=== PATIENT | male | born 1995 | race Caucasian/White ===

== ENCOUNTER 2020-01-05 17:35 | Emergency (ER) | payer BC, SELFPAY ==
[2020-01-05 17:41] VITALS: BP 134/74; PULSE 73; RESP 18; TEMP 36.9; O2SAT 99
--- NOTE | 2020-01-05 17:45 | DI.RAD.S_ITS ---
PROCEDURE: XR HAND RT MIN 3V INDICATIONS: punched plywood TECHNIQUE: 3 views of the hand(s) acquired. COMPARISON: [facility], , HAND 3V RIGHT, 08/12/2012, 21:40. FINDINGS: Bones: No dislocations. There is a suspected fracture at the base of the fifth metacarpal, relatively well-seen on 2-3 views. This area was not abnormal on comparison similar study 08/12/12. Carpal bones are normally aligned. No suspicious bony lesions. Soft tissues: No suspicious soft tissue calcifications. IMPRESSION: Partially visualized fifth metacarpal base fracture, intra-articular. Dictated by: Bernard Felipe M.D. on 01/05/2020 at 18:42 Approved by: Bernard Felipe M.D. on 01/05/2020 at 18:44
--- NOTE | 2020-01-05 19:15 | ED_ITS ---
HPI - Extremity Injury (Upper) <TIMOTHY Pedroza - Last Filed: 01/05/20 20:46> General Chief Complaint: Extremity Injury, Upper Stated Complaint: right hand injury Time Seen by Provider: 01/05/20 17:58 Source: patient Mode of arrival: Ambulatory History of Present Illness HPI narrative: 24-year-old male presents emergency department complaining of right hand pain for the past 4 days. Patient states he punched a piece of plywood. He reports swelling and ecchymosis. Patient states he has been wearing a wrist brace for the past 2 days. He states the pain is worse when he bends his wrist and better with rest. Patient describes the pain is a dull aching with intermittent sharp stabbing sensations, rated at a 4-5/10. Patient denies any other injury such as finger injury, elbow injury, shoulder injury, or head injury. Patient denies any nausea, vomiting, diarrhea, fevers, chest pain, or any other concerns. Related Data Allergies Allergy/AdvReac Type Severity Reaction Status Date / Time No Known Drug Allergies Allergy Verified 01/05/20 18:43 Review of Systems <TIMOTHY Pedroza - Last Filed: 01/05/20 20:46> Review of Systems Narrative: REVIEW OF SYSTEMS: GENERAL: Denies fever or chills. HENT: No head trauma. RESPIRATORY: No cough MUSCULOSKELETAL: Complains of right hand pain, see HPI. INTEGUMENTARY: No rash, lesions, or pruritus. NEURO: No numbness, tingling. PSYCH: No behavior or mood changes. Patient History <TIMOTHY Pedroza - Last Filed: 01/05/20 20:46> Medical History No significant medical problems (Acute) Social History Smoking Status: Current every day smoker Smoking Status: Current every day smoker tobacco type: vaping Exam <TIMOTHY Pedroza - Last Filed: 01/05/20 20:46> Initial Vital Signs Initial Vital Signs: Vital Signs Temperature 98.4 F 01/05/20 17:41 Pulse Rate 73 01/05/20 17:41 Respiratory Rate 18 01/05/20 17:41 Blood Pressure 134/74 01/05/20 17:41 Pulse Oximetry 99 01/05/20 17:41 PHYSICAL EXAMINATION: GENERAL: Well groomed, alert, and cooperative. Answers questions promptly and appropriately. Vital signs noted. HENT: Normocephalic, atraumatic. EYES: Symmetrical, sclera white, no periorbital swelling. CARDIOVASCULAR: Regular rate. RESPIRATORY: Normal respiratory rate, trachea midline, airway patent. No stridor, nasal flaring or accessory muscle use. MUSCULOSKELETAL: Tenderness at the base of 4th and 5th metatarsal of right hand, decreased flexion of wrist due to pain. No tenderness to palpation of phalanges or elbow. 8 cm area of ecchymosis noted on the mid palmar aspect of right hand Normal gait and coordination. Equal tone and mass bilaterally. EXTREMITIES: CMS intact. Pedal pulses 2+ and intact bilaterally. SKIN: Warm, dry, soft, appropriate color for ethnicity. No lesions, rashes, or wounds. NEURO: Alert and Oriented X 3. No sensory deficits. PSYCH: Appropriate affect and mood. <Bren Fitch MD - Last Filed: 01/06/20 02:38> Initial Vital Signs Initial Vital Signs: Vital Signs Temperature 98.4 F 01/05/20 17:41 Pulse Rate 73 01/05/20 17:41 Respiratory Rate 18 01/05/20 17:41 Blood Pressure 134/74 01/05/20 17:41 Pulse Oximetry 99 01/05/20 17:41 Procedures <TIMOTHY Pedroza - Last Filed: 01/05/20 20:46> Orthopedic Splinting/Casting Injury #1: Side: right Upper Extremity Injury Location: hand Upper Extremity Immobilizer: ulnar gutter Post splinting neuro exam: intact Post splinting vascular exam: intact Placed by: Nursing Course <TIMOTHY Pedroza - Last Filed: 01/05/20 20:46> Orders Ordered: ED Orders 01/05/20 17:45 XR hand RT min 3V Stat Vital Signs Vital signs: Vital Signs - 8 hr 01/05/20 19:53 01/05/20 19:54 Pulse Rate 70 Pulse Rate [Right Radial] 70 Respiratory Rate 16 Blood Pressure [Left Arm] 128/72 Pulse Oximetry 98 <Bren Fitch MD - Last Filed: 01/06/20 02:38> Orders Ordered: ED Orders 01/05/20 17:45 XR hand RT min 3V Stat Vital Signs Vital signs: Vital Signs - 8 hr 01/05/20 19:53 01/05/20 19:54 Pulse Rate 70 Pulse Rate [Right Radial] 70 Respiratory Rate 16 Blood Pressure [Left Arm] 128/72 Pulse Oximetry 98 MDM - Extremity Injury (Upper) <TIMOTHY Pedroza - Last Filed: 01/05/20 20:46> Medical Records Attestation: I reviewed the patient's medical records. Lab Data Attestation: I reviewed the patient's lab results. Imaging Data Extremity x-ray #1: Radiologist's Impression: [address] [address] XRay Report Signed Patient: Kevin Christianson [facility]#: [id number] : 1995Acct:[id number] Age/Sex: 24 / MDate of Service: 01/05/20 Loc: ED Accession Number: [id number] Procedure: XR hand RT min 3V Ordering Provider: Oumar Santiago MD PROCEDURE: XR HAND RT MIN 3V INDICATIONS: punched plywood TECHNIQUE: 3 views of the hand(s) acquired. COMPARISON: [facility], , HAND 3V RIGHT, 08/12/2012, 21:40. FINDINGS: Bones: No dislocations. There is a suspected fracture at the base of the fifth metacarpal, relatively well-seen on 2-3 views. This area was not abnormal on comparison similar study 08/12/12. Carpal bones are normally aligned. No suspicious bony lesions. Soft tissues: No suspicious soft tissue calcifications. IMPRESSION: Partially visualized fifth metacarpal base fracture, intra- articular. Dictated by: Bernard Felipe M.D. on 01/05/2020 at 18:42 Approved by: Bernard Felipe M.D. on 01/05/2020 at 18:44 MDM Narrative Medical decision making narrative: 24yo male presenting to the emergency department for right hand pain after punching a hard object. X-ray shows 5th metacarpal fracture, examination correlates with this finding. No concerns for other injury due to history examination. Splint was placed. Patient was encouraged to follow up with Ortho. Return precautions given, patient agreed to plan of care verbalized understanding. Discharge Plan Departure Patient Disposition: Home Clinical Impression: Fracture of fifth metacarpal bone Qualifiers: Encounter type: initial encounter Fracture type: closed Metacarpal location: base Fracture alignment: nondisplaced Laterality: right Qualified Code(s): S62.346A - Nondisplaced fracture of base of fifth metacarpal bone, right hand, initial encounter for closed fracture Discharge Date/Time: 01/05/20 20:04 Instructions: DI for a Hand Fracture Activity Restrictions/Additional Instructions: Thank you for entrusting me with your care today. As discussed, you have a fracture in the 5th metacarpal bone of your right hand. We have placed a splint on her hand, do not remove this. If you feel that the James bandages wrap too tightly, you may loosen it. Please follow-up with the orthopedic listed below. Return emergency department for any new or worsening symptoms such as severe pain, numbness, tingling, chest pain, fevers, or any other concerns. Referrals: Leonor Cameron PA-C [Advanced Practice Architect] - <Bren Fitch MD - Last Filed: 01/06/20 02:38> Cosign ED Attending Cosignature Attestation: I was immediately available in the department for consultation throughout this patient's visit. I agree with documentation as above. Bren Fitch MD
[2020-01-05 19:53] VITALS: PULSE 70
[2020-01-05 19:54] VITALS: BP 128/72; PULSE 70; RESP 16; O2SAT 98
== END 2020-01-05 20:04 | disposition home or self-care (01) ==
PROVIDERS: Emergency Provider Nurse Practitioner
DX: S62.346A Nondisplaced fracture of base of fifth metacarpal bone, right hand, initial encounter for closed fracture (principal); W22.8XXA Striking against or struck by other objects, initial encounter
CPT/HCPCS: 29125; 73130; 99283

== ENCOUNTER 2020-08-24 07:14 | Emergency (ER) | payer BC, SELFPAY ==
[2020-08-24 07:39] VITALS: BP 124/75; PULSE 75; RESP 12; TEMP 36.7; O2SAT 97
[2020-08-24 08:05] LABS: COVID19 -Nasal RAPID Negative (Negative)
--- NOTE | 2020-08-24 08:11 | ED_ITS ---
HPI - URI/Sore Throat General Chief Complaint: Upper Respiratory Symptoms Stated Complaint: Body aches/diarrhea/headache x1day ?COVID Time Seen by Provider: 08/24/20 07:40 Source: patient Mode of arrival: Ambulatory Limitations: no limitations History of Present Illness HPI Narrative: Patient is a 25-year-old male who was exposed to COVID [place] [employer] and [employer]. He did not wear mask with his sister who then became positive. Yesterday he developed a headache and some fatigue. He denies any chest pain cough shortness of breath nausea vomiting, loss of taste or smell or body aches. He is here solely to get a COVID test Related Data Allergies Allergy/AdvReac Type Severity Reaction Status Date / Time No Known Drug Allergies Allergy Verified 08/24/20 07:41 Review of Systems Review of Systems ROS Unobtainable: All systems reviewed & are unremarkable except as noted in HPI and below Constitutional Constitutional: Denies chills, Denies fever(s), Reports headache(s), Denies lethargy and Denies weakness ENT Ears, Nose, Mouth, and Throat: Denies change in voice, Reports headache(s), Denies neck pain and Denies sore throat Cardiovascular Cardiovascular: Denies chest pain, Denies irregular heart rhythm, Denies light headedness, Denies palpitations, Denies dyspnea, Denies dyspnea on exertion and Denies orthopnea Respiratory Respiratory: Denies cough, Denies dyspnea, Denies dyspnea on exertion and Denies wheezing Gastrointestinal Gastrointestinal: Denies abdominal pain, Denies change in bowel habits, Denies diarrhea, Denies nausea and Denies vomiting Musculoskeletal Musculoskeletal: Denies neck pain Integumentary/Breasts Skin/Breast: Denies pruritus, Denies erythema, Denies rash and Denies wounds Neurologic Neurologic: Reports headache(s) and Denies weakness Endocrine Endocrine: Denies palpitations Allergic/Immunologic Allergic/Immunologic: Denies wheezing Patient History Medical History (Updated 08/24/20 @ 08:23 by Jenna Jean DO) No significant medical problems Social History Smoking Status: Current every day smoker Smoking Status: Current every day smoker tobacco type: vaping Substance Use Type: does not use Exam Initial Vital Signs Initial Vital Signs: Vital Signs Temperature 98.0 F 08/24/20 07:39 Pulse Rate 75 08/24/20 07:39 Respiratory Rate 12 08/24/20 07:39 Blood Pressure 124/75 08/24/20 07:39 Pulse Oximetry 97 08/24/20 07:39 GENERAL: Well-appearing, well-nourished and in no acute distress. CARDIOVASCULAR: peripheral pulses in tact, cap refill <2 sec RESPIRATORY: No respiratory distress, speaks in full sentences without difficulty EXTREMITIES: Normal range of motion, no clubbing or edema. Neurovascularly intact NEUROLOGICAL: Cranial nerves II through XII grossly intact. Normal gait and speech. SKIN: Warm, dry, no petechiae, no rashes or lesions. Course Orders Ordered: ED Orders 08/24/20 07:40 COVID19 Stat Vital Signs Vital signs: Vital Signs - 8 hr 08/24/20 07:39 Temperature 98.0 F Pulse Rate 75 Respiratory Rate 12 Blood Pressure 124/75 Pulse Oximetry 97 MDM - URI/Sore Throat Lab Data Labs: Lab Results 08/24/20 Range/Units 07:40 COVID-19 PCR Negative (Negative) MDM Narrative Medical decision making narrative: Patient had an exposure 5 days ago highly suspect that he may develop COVID. His COVID test is currently negative. I have discussed with him that he needs to quarantine and tell others around him that he was exposed. He has no comorbidities and is overall feeling well. Discharge Plan Departure Patient Disposition: Home Clinical Impression: Upper respiratory infection, COVID-19 Instructions: DI for COVID-19 (Suspected or Confirmed ) Activity Restrictions/Additional Instructions: *You have been diagnosed with it is highly suspected that you have COVID-19 *Continue to take medications as directed Recommend vitamin D 2500 units daily Tylenol if needed for fever 650 mg every 4-6 hours *Follow up with your primary care provider in 2-3 days *Return to ER if you should have increasing shortness of breath, bluish lips [or] any new, worsening or concerning symptoms *What to do: -recommend you buy a home pulse oximeter to monitor your oxygen levels at home. If oxygen is dropping to 88% you need to return to ED Who needs to quarantine? People who have been in close contact with someone who has COVID-19?excluding people who have had COVID-19 within the past 3 months. People who have tested positive for COVID-19 do not need to quarantine or get tested again for up to 3 months as long as they do not develop symptoms again. People who develop symptoms again within 3 months of their first bout of COVID- 19 may need to be tested again if there is no other cause identified for their symptoms. What counts as close contact? You were within 6 feet of someone who has COVID-19 for a total of 15 minutes or more You provided care at home to someone who is sick with COVID-19 You had direct physical contact with the person (hugged or kissed them) You shared eating or drinking utensils They sneezed, coughed, or somehow got respiratory droplets on you Steps to take Stay home and monitor your health Stay home for 14 days after your last contact with a person who has COVID-19. Watch for fever (100.4?F), cough, shortness of breath, or other symptoms of COVID-19 If possible, stay away from others, especially people who are at higher risk for getting very sick from COVID-19
== END 2020-08-24 08:32 | disposition home or self-care (01) ==
PROVIDERS: Emergency Provider Emergency Medicine
DX: J06.9 Acute upper respiratory infection, unspecified (principal); R51.9 Headache, unspecified; U07.1 COVID-19; R53.83 Other fatigue
CPT/HCPCS: 87635; 99281; 99282

== ENCOUNTER → 2021-01-26 13:19 | Outpatient (CLI) | payer BC, SELFPAY ==
[2021-01-26 13:42] LABS: COVID19 -Nasal RAPID POSITIVE (Negative)
== END ==
PROVIDERS: Visit Provider Physician Assistant
DX: J02.9 Acute pharyngitis, unspecified (principal); R05 Cough; R51.9 Headache, unspecified
CPT/HCPCS: 87635

== ENCOUNTER 2022-01-15 09:35 | Emergency (ER) | payer SELFPAY ==
[2022-01-15 10:01] VITALS: BP 116/65; PULSE 75; RESP 16; TEMP 36.6; O2SAT 98; BMI 31.6
--- NOTE | 2022-01-15 10:04 | DI.RAD.S_ITS ---
PROCEDURE: XR CHEST 2V INDICATIONS: chest pain, worse with palpation TECHNIQUE: 2 views of the chest were acquired. COMPARISON: None. FINDINGS: Surgical changes and devices: None. Lungs and pleura: Lungs are clear. No pleural effusions or pneumothorax. Mediastinum: Mediastinal contours are normal. Heart size is normal. Bones and chest wall: No suspicious bony abnormalities. Soft tissues appear unremarkable. IMPRESSION: No acute cardiopulmonary findings. Dictated by: Darby Redd M.D. on 01/15/2022 at 10:42 Approved by: Darby Redd M.D. on 01/15/2022 at 10:42
--- NOTE | 2022-01-16 19:31 | ED.CHESTPAIN ---
HPI - Chest Pain <Aguilar Amor PA-C - Last Filed: 01/16/22 19:38> General Chief Complaint: Chest Pain Stated Complaint: Chest pain x 3 days Time Seen by Provider: 01/15/22 13:27 Source: patient Mode of arrival: Ambulatory Limitations: no limitations History of Present Illness HPI narrative: 26-year-old male with no reported past medical history presents to the ED with 2 days of sternal pain. Patient describes it as he feels like it needs to pop?, and he is able to reproduce it by pushing down on his sternum. Patient denies any new trauma, new activity. Patient has not taken anything for the pain. Patient denies fever, chills, trouble breathing, nausea, vomiting, abdominal pain, dysuria, lightheadedness, dizziness, syncope. Related Data Home Medications Medication Instructions Recorded Confirmed No Known Home Medications 09/20/20 01/26/21 Allergies Allergy/AdvReac Type Severity Reaction Status Date / Time No Known Drug Allergies Allergy Verified 01/15/22 10:04 Review of Systems <Aguilar Amor PA-C - Last Filed: 01/16/22 19:38> Review of Systems ROS Unobtainable: All systems reviewed & are unremarkable except as noted in HPI and below Constitutional Constitutional: Denies chills, Denies fatigue, Denies fever(s), Denies frequent falls, Denies lethargy and Denies weakness Eyes Eyes: Denies change in vision, Denies eye discharge, Denies irritation and Denies loss of vision ENT Ears, Nose, Mouth, and Throat: Denies change in voice, Denies dizziness, Denies neck pain, Denies sore throat and Denies throat swelling Cardiovascular Cardiovascular: Reports chest pain, Denies irregular heart rhythm, Denies lightheadedness, Denies palpitations, Denies dyspnea, Denies dyspnea on exertion and Denies orthopnea Comments: Chest pain in the sternum area, patient says he feels like it needs to pop, reproducible with pushing on the sternum Respiratory Respiratory: Denies cough, Denies dyspnea, Denies dyspnea on exertion and Denies wheezing Gastrointestinal Gastrointestinal: Denies abdominal pain, Denies change in bowel habits, Denies diarrhea, Denies nausea and Denies vomiting Genitourinary Genitourinary: Denies hematuria, Denies flank pain, Denies urinary incontinence and Denies urinary urgency Musculoskeletal Musculoskeletal: Denies back pain, Denies muscle weakness, Denies neck pain, Denies numbness and Denies tingling Integumentary/Breasts Skin/Breast: Denies pruritus, Denies erythema, Denies rash and Denies wounds Neurologic Neurologic: Denies behavioral changes, Denies confusion, Denies dizziness, Denies frequent falls, Denies loss of vision, Denies numbness, Denies tingling and Denies weakness Psychiatric Psychiatric: Denies anxiety, Denies behavioral changes, Denies confusion, Denies depression, Denies homicidal ideation and Denies suicidal ideation Endocrine Endocrine: Denies fatigue, Denies flushing and Denies palpitations Hematologic/Lymphatic Hematologic/Lymphatic: Denies easy bruising Allergic/Immunologic Allergic/Immunologic: Denies urticaria, Denies throat swelling and Denies wheezing Patient History <Aguilar Amor PA-C - Last Filed: 01/16/22 19:38> Medical History No significant medical problems Shingles Social History Smoking Status: Current every day smoker Smoking Status: Current every day smoker tobacco type: vaping Substance Use Type: does not use Exam <Aguilar Amor PA-C - Last Filed: 01/16/22 19:38> Narrative Exam Narrative: Const General:?cooperative, healthy appearing and comfortable [facility] Head:?normal to inspection Ears:?hearing grossly normal bilaterally Nose:?external nose normal Face and sinus:?normal facial exam and sinuses nontender Mouth:?oral mucosae normal Throat:?posterior oropharynx normal Eyes General:?appearance normal, both eyes and all related structures Neck Neck:?normal visual inspection and no lymphadenopathy noted Resp Effort & Inspection:?normal respiratory effort Auscultation:?clear to auscultation bilaterally Cardio Rate:?regular rate Rhythm:?regular rhythm Tenderness to palpation reproducible in the sternum region with anteroposterior pressure. Neuro General:?patient alert, patient awake and patient oriented x3 Initial Vital Signs Initial Vital Signs: Vital Signs Temperature 97.9 F 01/15/22 10:01 Pulse Rate 75 01/15/22 10:01 Respiratory Rate 16 01/15/22 10:01 Blood Pressure 116/65 01/15/22 10:01 Pulse Oximetry 98 01/15/22 10:01 <Bren Fithc MD - Last Filed: 01/23/22 06:26> Initial Vital Signs Initial Vital Signs: Vital Signs Temperature 97.9 F 01/15/22 10:01 Pulse Rate 75 01/15/22 10:01 Respiratory Rate 16 01/15/22 10:01 Blood Pressure 116/65 01/15/22 10:01 Pulse Oximetry 98 01/15/22 10:01 MDM - Chest Pain <Aguilar Amor PA-C - Last Filed: 01/16/22 19:38> Imaging Data Chest x-ray: Radiologist's Impression: PROCEDURE:? XR CHEST 2V ? INDICATIONS:? chest pain, worse with palpation ? TECHNIQUE:? 2 views of the chest were acquired.? ? COMPARISON:? None. ? FINDINGS:? ? Surgical changes and devices:? None.? ? Lungs and pleura:? Lungs are clear.? No pleural effusions or pneumothorax.? ? Mediastinum:? Mediastinal contours are normal.? Heart size is normal.? ? Bones and chest wall:? No suspicious bony abnormalities.? Soft tissues appear unremarkable.? ? IMPRESSION:? No acute cardiopulmonary findings. ? ? Dictated by: Darby Redd M.D. on 01/15/2022 at 10:42 ? ? Approved by: Darby Redd M.D. on 01/15/2022 at 10:42 ? [facility] Narrative Medical decision making narrative: 26-year-old male with no reported past medical history presents to the ED with 2 days of sternal pain. Given that the pain is reproducible by pushing down on the sternum, concern for musculoskeletal sprain/strain. Unlikely cardiac or pulmonary cause, CXR without acute changes. Recommend supportive measures with ibuprofen/Tylenol for the symptoms. Patient agrees to follow-up with his PCP. ED return precautions discussed with patient. Patient verbalizes understanding. Discharge Plan Departure Patient Disposition: Home Clinical Impression: Costochondritis Instructions: DI for Atypical Chest Pain Activity Restrictions/Additional Instructions: You were evaluated in the ED today for chest pain. Your chest x-ray was normal. Your symptoms are reproducible by pushing down on your breast bone, when you move. This is reassuring, your symptoms are likely due to a musculoskeletal sprain/strain. You may take Tylenol or ibuprofen for your symptoms. Return to the ED if you have worsening pain, shortness of breath. Prescriptions: No Action No Known Home Medications 0RF <Bren Fitch MD - Last Filed: 01/23/22 06:26> Cosign ED Attending Cosdebbyature Attestation: I was immediately available in the department for consultation throughout this patient's visit. I agree with documentation as above. Bren Fitch MD
== END 2022-01-15 13:56 | disposition home or self-care (01) ==
PROVIDERS: Emergency Provider Student in an Organized Health Care Education/Training Program
DX: M94.0 Chondrocostal junction syndrome [Tietze] (principal)
CPT/HCPCS: 71046; 99281; 99283

== ENCOUNTER 2024-04-06 00:30 | Emergency (ER) | payer SELFPAY ==
[2024-04-06 00:39] VITALS: BP 172/93; PULSE 115; RESP 16; TEMP 37.1; O2SAT 99; BMI 29.9
--- NOTE | 2024-04-06 00:48 | ED_ITS ---
HPI - General Adult General Chief complaint: Neuro Symptoms/Deficit Stated complaint: rt side face going numb Time Seen by Provider: 04/06/24 00:38 History of Present Illness HPI narrative: 29-year-old male complains of tingling and numbness to the right side of his tongue yesterday, through the day today increased, also noticed this evening when he tried to brush his teeth that he had some drool from the right side of his face, inability to completely close his right eye, also some facial droop when he tries to smile in the right side. He has no previous diagnosis of any neurological conditions, no prior Aceves's palsy. No history of diabetes. No blood thinner medications. No headache symptoms. No weakness to arms or legs or to left side of the face. No trouble with swallowing. No problems with blurred vision or scotomata or double vision. He has tingling to the right side of his face and tongue, but no tingling to the left side is face, nor to upper extremities or lower extremities. First visit for this problem, he has not currently taking any medications for this, has not tried any [id number] medications for this. Related Data Previous Rx's Medication Instructions Recorded prednisone 20 mg tablet 60 mg (3 x 20 mg) PO DAILY 7 days 04/06/24 #21 tabs valacyclovir 1 gram tablet 1,000 mg PO TID 7 days #21 tabs 04/06/24 Allergies Allergy/AdvReac Type Severity Reaction Status Date / Time No Known Drug Allergies Allergy Verified 01/15/22 10:04 Review of Systems Review of Systems Narrative: see HPI Patient History Medical History No significant medical problems Shingles Social History Smoking Status: Current every day smoker Smoking Status: Current every day smoker tobacco type: vaping Substance Use Type: does not use Exam Narrative Exam Narrative: GENERAL: Well-developed patient, in mild distress. HEAD: Atraumatic. Normocephalic. EYES: Pupils equal round and reactive. Extraocular motions intact. No scleral icterus. No injection or drainage. No significant erythema to sclera on the right or left side ENT: Nose without bleeding, purulent drainage. Throat without erythema, tonsillar hypertrophy or exudate. Airway patent. Right TM not seen due to EAC moist cerumen occluding the canal NECK: Trachea midline. Non tender CARDIOVASCULAR: Regular rate and rhythm without murmurs, gallops, or rubs. RESPIRATORY: Clear to auscultation. Breath sounds equal bilaterally. No wheezes, rales, or rhonchi. GASTROINTESTINAL: Abdomen soft, non-tender, nondistended. EXTREMITIES: No edema or joint tenderness. BACK: Nontender without deformity or crepitance. No flank tenderness. NEURO: AOx3. Clear speech, cooperative. 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 He has slight right facial droop at rest, significantly present with smiling. He has inability to close the right eyelid all the way when asked to close both eyes. He has some diminished ability to raise his right eyebrow on the right side compared to the left. No significant numbness on light touch testing upper mid lower face. Remainder of cranial nerve exam unremarkable. Motor 5/5 upper extremities, motor 5/5 lower extremities. Normal [id number] testing right and left side. SKIN: No rash or erythema of visible areas Initial Vital Signs Initial Vital Signs: Vital Signs Temperature 98.7 F 04/06/24 00:39 Pulse Rate 115 H 04/06/24 00:39 Respiratory Rate 16 04/06/24 00:39 Blood Pressure 172/93 H 04/06/24 00:39 Pulse Oximetry 99 04/06/24 00:39 Oxygen Delivery Method Room Air 04/06/24 00:39 Course Orders Ordered: Discontinued Medications Artificial Tears (Carboxymethylcellulose Drops) 1 drops EYE-RIGHT PRN PRN PRN Reason: Dry Eye(s) Prednisone (Prednisone 20 Mg Tablet) 60 mg PO NOW ONE Stop: 04/06/24 01:07 Last Admin: 04/06/24 01:40 Dose: 60 mg Documented By: OZZY Valacyclovir HCl (Valacyclovir 500 Mg Tablet) 1,000 mg PO NOW ONE Stop: 04/06/24 01:07 Last Admin: 04/06/24 01:42 Dose: 1,000 mg Documented By: OZZY Vital Signs Vital signs: Vital Signs - 8 hr 04/06/24 00:39 04/06/24 00:59 Temperature 98.7 F Pulse Rate 115 H 112 H Respiratory Rate 16 16 Blood Pressure 172/93 H 151/97 H Pulse Oximetry 99 97 Oxygen Delivery Method Room Air Room Air Medical Decision Making MDM Narrative Medical decision making narrative: 29-year-old with right-sided Aceves's palsy symptoms, no weakness to arms or legs, inability to close right eye when asked to close both eyes, inability to raise the right eyebrow as well as on his left side of the face, slight right facial droop at rest that is significantly more present with smiling on the right side. Remainder of cranial nerve and other motor upper and lower extremity assessments normal. We discussed treatment antivirals and steroids, as his symptoms are less than 48 hours and fairly significantly present, he is interested in trying this. First dose acyclovir and prednisone, prescription for 7 day course to his pharmacy sent. Follow up with Otolaryngology in next day or 2, return precautions discussed. Also advised to consider [id number] Lacri-Lube to keep his right eye moisturize during sleep at night, with daytime aqueous eye moisturizing drops every 30-60 minutes as ne eded. Patient seemed reassured, answered his questions, discharged home Discharge Plan Departure Patient Disposition: Home Clinical Impression: Aceves's palsy Activity Restrictions/Additional Instructions: 29-year-old male with right-sided tongue tingling and facial tingling, now with some decreased facial droop when smiling, inability to completely close the right eye. No weakness or numbness to the left side of the face, nor to the upper extremities, nor to the lower extremities. This is not a stroke of the midbrain or cortex of the brain. This is consistent with a different neurological disorder, Aceves's palsy, which is a weakness of the upper and lower face on the affected side due to a peripheral palsy of the 7th cranial nerve on that side. If symptoms are within a couple of days, some patients might respond to antiviral treatment and steroid treatment. We discussed this, you would like to start the treatment. First dose of prednisone and Ventolin acyclovir antiviral given in the emergency department, prescription for further course sent to your pharmacy. Consider use of xtqs-rpx-kitlaen Lacri-Lube to lubricate the affected eye in the right side during sleep, as it we will be exposed to drying, when the right eyelid is not able to completely close. Consider use of contact isolation or aqueous nonmedicated moisturizing eyedrops while awake every 30-60 minutes to keep the right eye hydrated in the imbricated. Hopefully you will have complete resolution of symptoms, although some patient sometimes do not have complete resolution of symptoms. Consider follow up with local otolaryngology specialist, contact information given for their clinic. Return to this/nearest emergency department for any change worsening symptoms or any concerns prior Prescriptions: New prednisone 20 mg tablet 60 mg PO DAILY 7 Days Qty: 21 0RF valacyclovir 1 gram tablet 1,000 mg PO TID 7 Days Qty: 21 0RF Referrals: Humza Jones MD [Physician] - Stand Alone Forms: Patient Portal/API
[2024-04-06 00:59] VITALS: BP 151/97; PULSE 112; RESP 16; O2SAT 97
[2024-04-06] MEDS: predniSONE 20 MG TABLET 60 MG PO (01:40)
[2024-04-06] MEDS: valACYclovir 500 MG TABLET 1000 MG PO (01:42)
[2024-04-06 01:49] VITALS: BP 124/73; PULSE 102; RESP 16; O2SAT 97
== END 2024-04-06 01:51 | disposition home or self-care (01) ==
PROVIDERS: Emergency Provider Emergency Medicine
DX: G51.0 Bell's palsy (principal)
CPT/HCPCS: 99283; 99284; A9270

== ENCOUNTER 2025-05-23 17:48 | Emergency (ER) | payer OTHER, SELFPAY ==
[2025-05-23 17:57] VITALS: BP 144/88; PULSE 86; RESP 14; TEMP 36.6; O2SAT 98; BMI 32.3
--- NOTE | 2025-05-23 18:47 | ED.ANIMALBIT ---
HPI - Animal Bite General Chief Complaint: Animal Bite Stated Complaint: animal bite-dog Lt ankle Time Seen by Provider: 05/23/25 18:46 Source: patient, RN notes reviewed and old records reviewed Mode of arrival: Ambulatory Limitations: no limitations History of Present Illness HPI narrative: 30-year-old male with a complaint of dog bite to the left ankle/calf. Patient states this happened earlier today. 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 He did speak to the dog's owners but states they were not very forthcoming with the information they were not willing to share her vaccination status. Patient is feeling out a report. He is unsure of his tetanus status. Discussed rabies but felt to be low likely has not patient defers. Patient denies any other injuries. Denies any daily medications. Does use tobacco. Denies any allergies to medication. Related Data Previous Rx's ?Medication ?Instructions ?Recorded amoxicillin 875 mg-potassium 1 tab PO BID #20 tabs 05/23/25 clavulanate 125 mg tablet Allergies Allergy/AdvReac Type Severity Reaction Status Date / Time No Known Drug Allergies Allergy Verified 05/23/25 17:57 Review of Systems Review of Systems ROS Unobtainable: All systems reviewed & are unremarkable except as noted in HPI and below Patient History Medical History Shingles No significant medical problems tobacco type: vaping alcohol intake frequency: holidays/special occasions only Exam Narrative Exam Narrative: GENERAL: Alert and oriented x three, male in mild distress HEENT: Head normocephalic, atraumatic, EOMI, pupils reactive, face symmetric, moist mucous membranes NECK: Supple, full range of motion CARDIOVASCULAR: Regular rate and rhythm without murmurs, rubs or gallops. RESPIRATORY: Breath sounds equal bilaterally, no wheezes rales or rhonchi. ABDOMEN: Soft, nontender. Normoactive bowel sounds all 4 quadrants. No guarding or rebound, rigidity, no mass EXTREMITIES: Normal range of motion, no clubbing or edema. Neurovascularly intact, patient has a small abrasion on his left posterior calf about 6 cm above the ankle. There was no gap and shows no cutaneous exposure. There was no surrounding erythema or drainage. Patient has a normal range of motion. 2+ pulse. No bony tenderness. NEUROLOGICAL: Cranial nerves II through XII grossly intact. Moving all extremities SKIN: Warm, dry, no petechiae, no rashes or lesions otherwise noted. Initial Vital Signs Initial Vital Signs: Vital Signs Temperature 97.9 F 05/23/25 17:57 Pulse Rate 86 05/23/25 17:57 Respiratory Rate 14 05/23/25 17:57 Blood Pressure 144/88 H 05/23/25 17:57 Pulse Oximetry 98 05/23/25 17:57 Oxygen Delivery Method Room Air 05/23/25 17:57 Course Orders Ordered: Discontinued Medications Amoxicillin/Clavulanate Potassium (Amoxicillin/Clav 875/125 Mg) 1 tab PO NOW ONE Stop: 05/23/25 18:52 Last Admin: 05/23/25 19:18 Dose: 1 tab Documented By: JACKI Diphtheria/Tetanus/Acell Pertussis (Tet,Diph,Pertuss(Acell),Vac/Pf 0.5 Ml Syringe) 0.5 ml IM .ONCE ONE Stop: 05/23/25 18:52 Last Admin: 05/23/25 19:17 Dose: 0.5 ml Documented By: JACKI Vital Signs Vital signs: Vital Signs - 8 hr 05/23/25 17:57 Temperature 97.9 F Pulse Rate 86 Respiratory Rate 14 Blood Pressure 144/88 H Pulse Oximetry 98 Oxygen Delivery Method Room Air MDM - Animal Bite MDM Narrative Medical decision making narrative: Patient's tetanus was updated. Patient started on oral antibiotic. Discharge Plan Departure Patient Disposition: Home Clinical Impression: Dog bite of left calf Instructions: DI for Dog Bite Activity Restrictions/Additional Instructions: Please follow up if any signs of infection. Your tetanus was updated today. Take oral antibiotics until completed. Prescription was sent to [facility]. Wound Care: Keep wound(s) clean and dry. Wash daily with soap and water only. Do not use over the counter products (alcohol or peroxide)on the wounds unless instructed by a physician, you can use topical triple antibiotics as prescribed. If wound condition worsens (increased/expanding redness, developing fluid blisters, or worsening pain), either contact your doctor for an urgent re-assessment , or return to the Emergency Department. Return if fever greater than 100.4 Fahrenheit, increased swelling, increasing pain or worsening symptoms such as increased discharge or spreading redness. Prescriptions: New amoxicillin-pot clavulanate 875-125 mg tablet 1 tab PO BID Qty: 20 0RF Stand Alone Forms: Patient Portal/API
[2025-05-23] MEDS: TET,DIPH,PERTUSS(ACELL),VAC/PF 0.5 ML SYRINGE IM (19:17)
[2025-05-23] MEDS: AMOXICILLIN/CLAV 875/125 MG 1 TAB PO (19:18)
[2025-05-23 19:38] VITALS: BP 153/70; PULSE 90; RESP 18; O2SAT 96
== END 2025-05-23 19:39 | disposition home or self-care (01) ==
PROVIDERS: Emergency Provider Emergency Medicine
DX: S81.852A Open bite, left lower leg, initial encounter (principal); W54.0XXA Bitten by dog, initial encounter; F17.290 Nicotine dependence, other tobacco product, uncomplicated; Z23 Encounter for immunization
CPT/HCPCS: 90471; 99283; 90715